=== PATIENT | female | born 1995 | race Asian ===

== ENCOUNTER 2016-11-08 15:24 | Emergency (ER) | payer OTHER ==
[~2016-11-08] VITALS: Ht 172.7 cm; Wt 62.6 kg
[2016-11-08 16:14] LABS: PLATELET COUNT 344 K/uL (152-353)
[2016-11-08 16:24] LABS: POTASSIUM 3.4 mmol/L (3.6-5.2); SODIUM 138 mmol/L (136-145)
[2016-11-08 16:59] VITALS: BP 124/60; TEMP 99
== END 2016-11-08 16:56 | disposition home or self-care (01) ==
LOC: ED 15:24
PROVIDERS: Emergency Medicine
DX: K52.9 Noninfective gastroenteritis and colitis, unspecified (principal); D64.9 Anemia, unspecified; E87.6 Hypokalemia
CPT/HCPCS: 36415; 80053; 85027; 99282

== ENCOUNTER 2017-11-13 17:47 | Emergency (ER) | payer OTHER ==
[~2017-11-13] VITALS: Ht 162.6 cm; Wt 61.2 kg
[2017-11-13 19:13] VITALS: BP 110/57; TEMP 98
== END 2017-11-13 19:22 | disposition home or self-care (01) ==
LOC: ED 17:47
DX: S40.862A Insect bite (nonvenomous) of left upper arm, initial encounter (principal); W57.XXXA Bitten or stung by nonvenomous insect and other nonvenomous arthropods, initial encounter; Y92.098 Other place in other non-institutional residence as the place of occurrence of the external cause
CPT/HCPCS: 99282

== ENCOUNTER 2019-08-26 19:57 | Emergency (ER) | payer OTHER ==
[~2019-08-26] VITALS: Ht 162.6 cm; Wt 60.8 kg
[2019-08-26 23:15] VITALS: BP 110/62; TEMP 98.3
== END 2019-08-26 23:15 | disposition home or self-care (01) ==
LOC: ED 19:57
DX: N76.0 Acute vaginitis (principal)
CPT/HCPCS: 81000; 81025; 87210; 87220; 99284

== ENCOUNTER 2021-01-22 18:45 | Emergency (ER) | payer OTHER ==
[~2021-01-22] VITALS: Ht 162.6 cm; Wt 68.0 kg
[2021-01-22 18:51] VITALS: BP 114/68; TEMP 98.1
== END 2021-01-22 19:54 | disposition home or self-care (01) ==
LOC: ED 18:45
DX: N76.0 Acute vaginitis (principal)
CPT/HCPCS: 81000; 81025; 99282